=== PATIENT | female | born 2005 | race Caucasian/White ===

== ENCOUNTER 2023-03-20 14:04 | Emergency (ER) | payer OTHER, SELFPAY ==
[2023-03-20 15:06] VITALS: BP 140/64; PULSE 72; RESP 21; TEMP 36.8; O2SAT 100; BMI 26.5
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
== END 2023-03-20 18:04 | disposition home or self-care (01) ==
PROVIDERS: Emergency Provider Emergency Medicine
DX: S00.33XA Contusion of nose, initial encounter (principal); V89.2XXA Person injured in unspecified motor-vehicle accident, traffic, initial encounter; Y93.9 Activity, unspecified; Y92.410 Unspecified street and highway as the place of occurrence of the external cause; Y99.9 Unspecified external cause status; R04.0 Epistaxis; R51.9 Headache, unspecified; R11.0 Nausea
CPT/HCPCS: 99282